=== PATIENT | male | born 1965 | race Caucasian/White ===

== ENCOUNTER 2021-03-16 05:55 | Day surgery (SDC) | payer BC ==
[2021-03-13 14:58] VITALS: BMI 31.4
[2021-03-16] MEDS ORDERED: Bupivacaine 0.25% HCL 30 ML VIAL ONE (06:19)
[2021-03-16] MEDS ORDERED: EPINEPHrine 1 MG/ML AMP ONE (06:20)
[2021-03-16] MEDS ORDERED: Fentanyl 100 MCG/2 ML VIAL ONE (06:47)
[2021-03-16] MEDS ORDERED: PROPOFOL 20 ML ONE ×2 (06:47→07:15)
[2021-03-16] MEDS ORDERED: Ondansetron PF 4 MG/2 ML Vial ONE (06:47)
[2021-03-16] MEDS ORDERED: Lidocaine 1% PF 5 ML VIAL ONE (06:47)
[2021-03-16] MEDS ORDERED: Midazolam HCl 2 mg/2 ml Vial ONE (06:47)
[2021-03-16] MEDS ORDERED: Lidocaine 1% MPF 2 ML VIAL ONE (06:51)
[2021-03-16] MEDS ORDERED: ceFAZolin 2 GM/Dextrose 50 ML IVPB ONE (06:57)
[2021-03-16] MEDS ORDERED: traMADol HCl 50 MG TAB PO PRN (08:09)
== END 2021-03-16 08:40 | disposition home or self-care (01) ==
LOC: CSHSDC 05:55
PROVIDERS: ATTEND Surgery
DX: C82.58 Diffuse follicle center lymphoma, lymph nodes of multiple sites (principal)
CPT/HCPCS: C1788; J0171; J0690; J1642; J2250; J2405; J2704; J3010; S0020

== ENCOUNTER 2021-06-29 08:58 | Day surgery (SDC) | payer BC ==
[2021-06-29] MEDS ORDERED: Lidocaine 1% PF 5 ML VIAL ONE (09:16)
[2021-06-29] MEDS ORDERED: Sodium Bicarbonate 2.5 MEQ/5 ML VIAL ONE (09:16)
[2021-06-29 09:57] VITALS: BP 137/90; TEMP 98
[2021-06-29 11:11] LABS: CSF, Glucose Less than 5 mg/dl (40-70)
[2021-06-29 11:45] LABS: CSF Source CSF; Clarity Hazy (Clear); Tube # 4
[2021-06-29 11:46] LABS: CSF, Protein 556 mg/dL (15-40)
[2021-06-29 12:20] LABS: Cell Count Non Hematic 4 %; Lymphocytes 96 %
[2021-06-29 12:21] LABS: Segmented Neutrophils 0 %
== END 2021-06-29 11:40 | disposition home or self-care (01) ==
LOC: CSHRAD 08:58
PROVIDERS: ATTEND Internal Medicine Hematology & Oncology
DX: C82.11 Follicular lymphoma grade II, lymph nodes of head, face, and neck (principal); G52.9 Cranial nerve disorder, unspecified; Z79.899 Other long term (current) drug therapy
CPT/HCPCS: 62270; 82945; 84157; 85060; 88112; 88184; 89051